=== PATIENT | female | born 1965 | race Caucasian/White ===

== ENCOUNTER 2016-12-18 20:21 | Emergency (ER) | payer BC ==
[2016-12-18] MEDS ORDERED: OPTIRAY 350 100 ML VIAL HMH IV ONE (20:22)
== END 2016-12-19 01:12 | disposition home or self-care (01) ==
LOC: ER 20:21
DX: R10.13 Epigastric pain (principal)
CPT/HCPCS: 36415; 74177; 80053; 81003; 83690; 85025; 86677